=== PATIENT | female | born 1990 | race Caucasian/White ===

== ENCOUNTER 2016-09-28 21:34 | Emergency (ER) | payer SELFPAY ==
--- NOTE | 2016-09-28 22:00 | ED.PDOC ---
History of Present Illness - General Chief Complaint: Respiratory Problem Stated Complaint: cough, sore throat,fever Time Seen by Provider: 09/28/16 22:00 Source: patient - History of Present Illness Initial Comments: Sanna Becerra 26 y/o female with history of asthma stated she started experiencing dry non productive cough last with nasal congestion and sore throat tonight.No chest pains no sob .Stated daughter sick with same seen here last night Timing/Duration: yesterday Severity: moderate Possible Cause: occasional episodes Improving Factors: nothing Worsening Factors: nothing Associated Symptoms: nasal congestion Respiratory Risk Factors: exposure to allergen Allergies/Adverse Reactions: Allergies Butorphanol [From Stadol] Adverse Reaction (Severe, Verified 12/31/14 12:26) Home Medications: Ambulatory Orders Acetaminophen W/ Codeine [Tylenol W/ CODEINE #3] 1 ea PO Q4-6H PRN #14 Cetirizine HCl [Zyrtec Allergy] 10 mg PO DAILY 12/31/14 Fluconazole [Diflucan] 200 mg PO AC #1 tab 12/31/14 Fluoxetine HCl [PROzac] 20 mg PO DAILY 12/31/14 LORazepam [Ativan] 1 mg PO BID 12/31/14 Sulfa/Trimeth 800/160 (Ds) Tab [Bactrim DS Tab] 1 ea PO BID #14 tab 12/31/14 Albuterol Inhaler [Ventolin Hfa Inhaler] 1 puff INH Q6HRS #1 inh 09/28/16 Chlorpheniramine Maleate [Chlor-Trimeton Allergy] 12 mg PO BEDTIME #30 tab 09/28 Dextromethorphan-Guaifenesin [Mucinex Dm 30-600 mg] 1 tab PO BID #30 tab predniSONE [Prednisone] 20 mg PO DAILY #7 tab 09/28/16 Review of Systems - Review of Systems Constitutional: States: no symptoms reported EENTM: States: see HPI, nose congestion Respiratory: States: see HPI, cough Cardiology: States: no symptoms reported Gastrointestinal/Abdominal: States: no symptoms reported Genitourinary: States: no symptoms reported Musculoskeletal: States: no symptoms reported Skin: States: no symptoms reported Neurological: States: no symptoms reported Endocrine: States: no symptoms reported Hematologic/Lymphatic: States: no symptoms reported Past Medical History (General) - Patient Medical History Hx Seizures: No Hx Stroke: No Hx Dementia: No Hx Asthma: Yes Hx of COPD: No Hx Cardiac Disorders: No Hx Congestive Heart Failure: No Hx Pacemaker: No Hx Hypertension: No Hx Thyroid Disease: No Hx Diabetes: No Hx Gastroesophageal Reflux: No Hx Renal Disease: No Hx Cancer: No Hx of HIV: No Hx Hepatitis C: No Hx MRSA: No Surgical History: no surgical history - Vaccination History Hx Tetanus, Diphtheria Vaccination: Yes Hx Influenza Vaccination: No Hx Pneumococcal Vaccination: No - Social History Hx Tobacco Use: No Hx Chewing Tobacco Use: No Hx Alcohol Use: No Hx Substance Use: No Hx Substance Use Treatment: No Hx Depression: Yes Hx Physical Abuse: No Hx Emotional Abuse: No Hx Suspected Abuse: No - Activities of Daily Living Patient Lives Alone: No - family - Female History Patient is a Female of Child Bearing Age (10 -59 yrs old): Yes Hx Last Menstrual Period: 09/21/16 Patient : No Family Medical History - Family History Mother Family History: No Known Living Status: Still Living Hx Family Asthma: Yes - mom, daughter Physical Exam - Physical Exam General Appearance: Alert, No apparent distress Eye Exam: bilateral normal ENT Exam: normal ENT inspection, hearing grossly normal, TMs normal, pharynx normal, nasal congestion Neck: non-tender, full range of motion Respiratory: chest non-tender, no respiratory distress, wheezing - mild Cardiovascular/Chest: normal peripheral pulses, regular rate, rhythm, no edema, no gallop, no JVD, no murmur Gastrointestinal/Abdominal: normal bowel sounds, non tender, soft, no organomegaly Extremity: normal range of motion, non-tender, normal inspection, no pedal edema , no calf tenderness Neurologic: alert, normal mood/affect, oriented x 3 Skin Exam: normal color, warm/dry Progress - Results/Orders Results/Orders: 09/28/16 22:02 SVN/Updraft Therapy .ONCE 09/28/16 22:20 STREP A SCREEN CULTURE Stat 09/29/16 09:00 [facility] Daily Laboratory Results Group A Strep DNA Negative (NEGATIVE) 09/28/16 22:20 - EKG/XRAY/CT XRAY: chest - no acute abnormalities noted Departure - Departure Clinical Impression: Reactive airway disease with acute exacerbation, Acute bronchospasm, Sore throat Time of Disposition: 22:39 Disposition: Discharge to Home or Self Care Condition: Good Departure Forms: ED Discharge - Pt. Copy, Patient Portal Self Enrollment Referrals: Jesse Hendrix MD [Primary Care Provider] - 1-2 Weeks Prescriptions: Albuterol Inhaler [Ventolin Hfa Inhaler] 1 puff INH Q6HRS #1 inh Chlorpheniramine Maleate [Chlor-Trimeton Allergy] 12 mg PO BEDTIME #30 tab Dextromethorphan-Guaifenesin [Mucinex Dm 30-600 mg] 1 tab PO BID #30 tab predniSONE [Prednisone] 20 mg PO DAILY #7 tab Home Medications: Ambulatory Orders Acetaminophen W/ Codeine [Tylenol W/ CODEINE #3] 1 ea PO Q4-6H PRN #14 Cetirizine HCl [Zyrtec Allergy] 10 mg PO DAILY 12/31/14 Fluconazole [Diflucan] 200 mg PO AC #1 tab 12/31/14 Fluoxetine HCl [PROzac] 20 mg PO DAILY 12/31/14 LORazepam [Ativan] 1 mg PO BID 12/31/14 Sulfa/Trimeth 800/160 (Ds) Tab [Bactrim DS Tab] 1 ea PO BID #14 tab 12/31/14 Albuterol Inhaler [Ventolin Hfa Inhaler] 1 puff INH Q6HRS #1 inh 09/28/16 Chlorpheniramine Maleate [Chlor-Trimeton Allergy] 12 mg PO BEDTIME #30 tab 09/28 Dextromethorphan-Guaifenesin [Mucinex Dm 30-600 mg] 1 tab PO BID #30 tab predniSONE [Prednisone] 20 mg PO DAILY #7 tab 09/28/16 Additional Instructions: FOLLOW UP WITH PRIMARY MD 10/03/16 as needed
[2016-09-28] MEDS ORDERED: predniSONE 10 MG TAB PO ONE (22:01)
[2016-09-28] MEDS ORDERED: IPRATROPIUM/ALBUTEROL 3 ML VIAL NEB ONE (22:02)
--- NOTE | 2016-09-28 22:34 | RAD ---
EXAM DESCRIPTION: Chest,1 View CLINICAL HISTORY: cough COMPARISON: None FINDINGS: Cardiac silhouette is within normal limits. The left upper ribs were not completely included in the examination. The patient is rotated. There is no focal parenchymal or pleural disease. There is no acute osseous process visualized. IMPRESSION: No evidence of acute cardiopulmonary disease. Electronically signed by: Ariel Grimaldo MD 09/28/2016 10:33 PM CDT
[2016-09-28] MEDS ORDERED: BENZONATATE PERLES 100 MG CAP PO ONE (22:44)
[2016-09-28] MEDS ORDERED: diphenhydrAMINE HCL 25 MG CAP PO ONE (22:44)
[2016-09-28 23:21] VITALS: BP 119/76; TEMP 100; O2SAT 98
== END 2016-09-28 23:21 | disposition home or self-care (01) ==
LOC: ER 21:34
DX: J45.901 Unspecified asthma with (acute) exacerbation (principal); J02.9 Acute pharyngitis, unspecified; F32.9 Major depressive disorder, single episode, unspecified; Z79.899 Other long term (current) drug therapy; Z88.8 Allergy status to other drugs, medicaments and biological substances
CPT/HCPCS: 71010; 87070; 87651; 94640; J7512; J7620; Q0163

== ENCOUNTER 2017-02-02 11:32 | Emergency (ER) | payer SELFPAY ==
[2017-02-02 11:46] VITALS: BP 111/77; TEMP 97.4; O2SAT 96
[2017-02-02] MEDS ORDERED: KETOROLAC TROMETHAMINE INJ 30 MG/ML VIAL IM ONE (11:48)
--- NOTE | 2017-02-02 11:51 | ED.PDOC ---
History of Present Illness - General Chief Complaint: Head Injury Stated Complaint: hit in head with door Time Seen by Provider: 02/02/17 11:44 Source: patient Exam Limitations: no limitations - History of Present Illness Initial Comments: Patient presents with a bump on her forehead. She says that her was opening a door and it hit her in the head. She did not get knocked out nor did she get knocked down. Pain is mid-forehead with some radiation to the right. Aching in nature. No previous injuries to the area. Timing/Duration: 1-3 hours Severity: mild Improving Factors: nothing Worsening Factors: nothing Associated Symptoms: denies symptoms Allergies/Adverse Reactions: Allergies Butorphanol [From Stadol] Adverse Reaction (Severe, Verified 12/31/14 12:26) Home Medications: Ambulatory Orders Acetaminophen W/ Codeine [Tylenol W/ CODEINE #3] 1 ea PO Q4-6H PRN #14 Cetirizine HCl [Zyrtec Allergy] 10 mg PO DAILY 12/31/14 Fluconazole [Diflucan] 200 mg PO AC #1 tab 12/31/14 Fluoxetine HCl [PROzac] 20 mg PO DAILY 12/31/14 LORazepam [Ativan] 1 mg PO BID 12/31/14 Sulfa/Trimeth 800/160 (Ds) Tab [Bactrim DS Tab] 1 ea PO BID #14 tab 12/31/14 Albuterol Inhaler [Ventolin Hfa Inhaler] 1 puff INH Q6HRS #1 inh 09/28/16 Chlorpheniramine Maleate [Chlor-Trimeton Allergy] 12 mg PO BEDTIME #30 tab 09/28 Dextromethorphan-Guaifenesin [Mucinex Dm 30-600 mg] 1 tab PO BID #30 tab predniSONE 20 mg PO DAILY #7 tab 09/28/16 Review of Systems - Review of Systems Constitutional: States: no symptoms reported EENTM: States: no symptoms reported Respiratory: States: no symptoms reported Cardiology: States: no symptoms reported Gastrointestinal/Abdominal: States: no symptoms reported Genitourinary: States: no symptoms reported Musculoskeletal: States: see HPI Skin: States: no symptoms reported Neurological: States: no symptoms reported Endocrine: States: no symptoms reported Hematologic/Lymphatic: States: no symptoms reported Past Medical History (General) - Patient Medical History Hx Seizures: No Hx Stroke: No Hx Dementia: No Hx Asthma: Yes Hx of COPD: No Hx Cardiac Disorders: No Hx Congestive Heart Failure: No Hx Pacemaker: No Hx Hypertension: No Hx Thyroid Disease: No Hx Diabetes: No Hx Gastroesophageal Reflux: No Hx Renal Disease: No Hx Cancer: No Hx of HIV: No Hx Hepatitis C: No Hx MRSA: No Surgical History: no surgical history - Vaccination History Hx Tetanus, Diphtheria Vaccination: Yes - 5 years ago Hx Influenza Vaccination: No Hx Pneumococcal Vaccination: No - Social History Hx Tobacco Use: Yes Hx Chewing Tobacco Use: No Hx Alcohol Use: No Hx Substance Use: No Hx Substance Use Treatment: No Hx Depression: Yes Hx Physical Abuse: No Hx Emotional Abuse: No Hx Suspected Abuse: No - Female History Patient is a Female of Child Bearing Age (10 -59 yrs old): Yes Hx Last Menstrual Period: 09/21/16 Patient : No Family Medical History - Family History Mother Family History: No Known Living Status: Still Living Hx Family Asthma: Yes - mom, daughter Physical Exam - Physical Exam General Appearance: Alert Respiratory: lungs clear Cardiovascular/Chest: regular rate, rhythm Gastrointestinal/Abdominal: normal bowel sounds, non tender, soft 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 TTP. No abnormalities of the nose. Progress - Progress Progress: 02/02/17 11:53 Toradol 30 mg IM x one. Departure - Departure Clinical Impression: Contusion of forehead Disposition: Discharge to Home or Self Care Condition: Good Departure Forms: ED Discharge - Pt. Copy, Patient Portal Self Enrollment Diet: resume usual diet Activity: increase activity as tolerated Referrals: Jesse Hendrix MD [Primary Care Provider] - 1-2 Weeks Home Medications: Ambulatory Orders Acetaminophen W/ Codeine [Tylenol W/ CODEINE #3] 1 ea PO Q4-6H PRN #14 Cetirizine HCl [Zyrtec Allergy] 10 mg PO DAILY 12/31/14 Fluconazole [Diflucan] 200 mg PO AC #1 tab 12/31/14 Fluoxetine HCl [PROzac] 20 mg PO DAILY 12/31/14 LORazepam [Ativan] 1 mg PO BID 12/31/14 Sulfa/Trimeth 800/160 (Ds) Tab [Bactrim DS Tab] 1 ea PO BID #14 tab 12/31/14 Albuterol Inhaler [Ventolin Hfa Inhaler] 1 puff INH Q6HRS #1 inh 09/28/16 Chlorpheniramine Maleate [Chlor-Trimeton Allergy] 12 mg PO BEDTIME #30 tab 09/28 Dextromethorphan-Guaifenesin [Mucinex Dm 30-600 mg] 1 tab PO BID #30 tab predniSONE 20 mg PO DAILY #7 tab 09/28/16 Additional Instructions: Ice ice to the area as needed. Tylenol for further pain control. Return to E.R. for nausea and vomiting 2 or more times.
[2017-02-02] MEDS ORDERED: NEOMYCIN-BACITRACIN-POLYMYXIN 0.9 GM UD TOP ONE (12:19)
== END 2017-02-02 12:21 | disposition home or self-care (01) ==
LOC: ER 11:32
DX: S00.83XA Contusion of other part of head, initial encounter (principal); Z88.8 Allergy status to other drugs, medicaments and biological substances; Z79.899 Other long term (current) drug therapy; Z87.891 Personal history of nicotine dependence; W22.8XXA Striking against or struck by other objects, initial encounter; Y92.9 Unspecified place or not applicable

== ENCOUNTER 2017-02-07 21:47 | Emergency (ER) | payer SELFPAY ==
[2017-02-07 22:25] VITALS: TEMP 98.4
[2017-02-07] MEDS ORDERED: FLUoxetine HCL 20 MG CAP PO ONE (22:28)
--- NOTE | 2017-02-07 22:31 | ED.PDOC ---
History of Present Illness - General Chief Complaint: Behavioral / Psych Stated Complaint: head pain, depression Time Seen by Provider: 02/07/17 21:58 Source: patient, RN notes reviewed, Vital Signs reviewed Exam Limitations: no limitations - History of Present Illness Initial Comments: Patient mainly here due to lots of emotional stress and post- depression. Her fiance is here with a cardiac issue. She takes Prozac and Lorazepam for her depression and anxiety. These are managed by her [employer]. She dose not feel like they are working well for her anymore. Reports she has had diarrhea all day due to the stress. She was here with a forehead contusion 5 days ago. Concerned that even though the bump is gone the pain is still present. Timing/Duration: getting worse Severity: moderate Associated Symptoms: anxiety Allergies/Adverse Reactions: Allergies Butorphanol [From Stadol] Adverse Reaction (Severe, Verified 12/31/14 12:26) Home Medications: Ambulatory Orders Fluoxetine HCl [PROzac] 40 mg PO DAILY 12/31/14 LORazepam [Ativan] 2 mg PO DAILY 12/31/14 Albuterol Inhaler [Ventolin Hfa Inhaler] 1 puff INH Q6HRS PRN 02/02/17 Levothyroxine Sodium [Synthroid] 125 mcg PO DAILY 02/02/17 Fluoxetine HCl 20 mg PO DAILY #30 cap 02/07/17 Review of Systems - Review of Systems Constitutional: States: no symptoms reported Respiratory: States: no symptoms reported Cardiology: States: no symptoms reported Gastrointestinal/Abdominal: States: diarrhea Musculoskeletal: States: no symptoms reported Skin: States: other - forehead contusion Neurological: States: anxiety, depressed, emotional problems, headache - frontal All other Systems: No Change from Baseline Past Medical History (General) - Patient Medical History Hx Seizures: No Hx Stroke: No Hx Dementia: No Hx Asthma: Yes Hx of COPD: No Hx Cardiac Disorders: No Hx Congestive Heart Failure: No Hx Pacemaker: No Hx Hypertension: No Hx Thyroid Disease: Yes Hx Diabetes: No Hx Gastroesophageal Reflux: No Hx Renal Disease: No Hx Cancer: No Hx of HIV: No Hx Hepatitis C: No Hx MRSA: No Surgical History: no surgical history - Vaccination History Hx Tetanus, Diphtheria Vaccination: Yes - 5 years ago Hx Influenza Vaccination: No Hx Pneumococcal Vaccination: No Immunizations Up to Date: No - Social History Hx Tobacco Use: Yes Hx Chewing Tobacco Use: No Hx Alcohol Use: No Hx Substance Use: No Hx Substance Use Treatment: No Hx Depression: Yes Hx Physical Abuse: No Hx Emotional Abuse: No Hx Suspected Abuse: No - Female History Patient is a Female of Child Bearing Age (10 -59 yrs old): Yes Hx Last Menstrual Period: 09/21/16 Patient : No - on menses now Family Medical History - Family History Mother Family History: No Known Living Status: Still Living Hx Family Asthma: Yes - mom, daughter Physical Exam - Physical Exam General Appearance: Alert, Anxious, No apparent distress, Well Developed, Well Groomed, Well Hydrated, Well Nourished Neck: supple, normal inspection Respiratory: lungs clear, normal breath sounds, no respiratory distress, no accessory muscle use Cardiovascular/Chest: regular rate, rhythm, no gallop, no JVD, no murmur Extremities Exam: normal range of motion, no evidence of injury Neurological: alert, calm, 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 Will give Ativan 1mg IM and Prozac 20mg PO for a total Prozac dose of 60mg. 02/07/17 23:07 Patient is now requesting to be discharged since her fiance is being transferred to another hospital Departure - Departure Clinical Impression: Post- depression, Generalized anxiety disorder Contusion of forehead Qualifiers: Encounter type: subsequent encounter Qualified Code(s): S00.83XD - Contusion of other part of head, subsequent encounter Time of Disposition: 23:04 Disposition: Discharge to Home or Self Care Condition: Good Departure Forms: ED Discharge - Pt. Copy, Patient Portal Self Enrollment Instructions: Generalized Anxiety Disorder, DI for Depression Diet: resume usual diet Activity: increase activity as tolerated Referrals: KILEY FANG JR [Primary Care Provider] - 1-2 Weeks Prescriptions: Fluoxetine HCl 20 mg PO DAILY #30 cap Home Medications: Ambulatory Orders Fluoxetine HCl [PROzac] 40 mg PO DAILY 12/31/14 LORazepam [Ativan] 2 mg PO DAILY 12/31/14 Albuterol Inhaler [Ventolin Hfa Inhaler] 1 puff INH Q6HRS PRN 02/02/17 Levothyroxine Sodium [Synthroid] 125 mcg PO DAILY 02/02/17 Fluoxetine HCl 20 mg PO DAILY #30 cap 02/07/17 Additional Instructions: Increase Prozac to 60mg Daily Change Lorazepam to 1mg 3X/day Follow up with your doctor
[2017-02-07] MEDS ORDERED: IBUPROFEN 200 MG TAB PO ONE (22:49)
[2017-02-07 23:19] VITALS: BP 128/77; O2SAT 97
== END 2017-02-07 23:19 | disposition home or self-care (01) ==
LOC: ER 21:47
DX: F53 Mental and behavioral disorders associated with the puerperium, not elsewhere classified (principal); F41.9 Anxiety disorder, unspecified; S00.83XD Contusion of other part of head, subsequent encounter; E07.9 Disorder of thyroid, unspecified; Z88.8 Allergy status to other drugs, medicaments and biological substances; X58.XXXD Exposure to other specified factors, subsequent encounter; Z79.899 Other long term (current) drug therapy

== ENCOUNTER 2017-05-10 05:34 | Emergency (ER) | payer SELFPAY ==
[2017-05-10 05:47] VITALS: BP 118/83; TEMP 97.7; O2SAT 96
[2017-05-10] MEDS ORDERED: BENZONATATE PERLES 100 MG CAP PO ONE (06:23)
--- NOTE | 2017-05-10 06:26 | ED.PDOC ---
History of Present Illness - General Chief Complaint: Respiratory Problem Stated Complaint: sore throat, couhg and congestion Time Seen by Provider: 05/10/17 06:23 Source: patient Exam Limitations: no limitations - History of Present Illness Timing/Duration: week Cough Quality/Degree: other - cough Possible Cause: illness exposure Improving Factors: nothing Worsening Factors: nothing Associated Symptoms: cough, nasal drainage, sore throat Allergies/Adverse Reactions: Allergies Butorphanol [From Stadol] Adverse Reaction (Severe, Verified 12/31/14 12:26) Home Medications: Ambulatory Orders Fluoxetine HCl [PROzac] 40 mg PO DAILY 12/31/14 LORazepam [Ativan] 2 mg PO DAILY 12/31/14 Albuterol Inhaler [Ventolin Hfa Inhaler] 1 puff INH Q6HRS PRN 02/02/17 Levothyroxine Sodium [Synthroid] 125 mcg PO DAILY 02/02/17 Benzonatate 200 mg PO TID PRN #20 cap 05/10/17 Review of Systems - Review of Systems Constitutional: Denies: chills, fever EENTM: States: nose congestion, throat pain Respiratory: States: cough. Denies: short of breath, wheezing Cardiology: States: no symptoms reported Gastrointestinal/Abdominal: States: no symptoms reported Genitourinary: States: no symptoms reported Musculoskeletal: States: other - myalgias Skin: States: no symptoms reported Neurological: States: no symptoms reported Endocrine: States: no symptoms reported Hematologic/Lymphatic: States: no symptoms reported All other Systems: Reviewed and Negative Past Medical History (General) - Patient Medical History Hx Seizures: No Hx Stroke: No Hx Dementia: No Hx Asthma: Yes Hx of COPD: No Hx Cardiac Disorders: No Hx Congestive Heart Failure: No Hx Pacemaker: No Hx Hypertension: No Hx Thyroid Disease: Yes Hx Diabetes: No Hx Gastroesophageal Reflux: No Hx Renal Disease: No Hx Cancer: No Hx of HIV: No Hx Hepatitis C: No Hx MRSA: No Surgical History: no surgical history - Vaccination History Hx Tetanus, Diphtheria Vaccination: Yes - 5 years ago Hx Influenza Vaccination: No Hx Pneumococcal Vaccination: No - Social History Hx Tobacco Use: Yes Hx Chewing Tobacco Use: No Hx Alcohol Use: No Hx Substance Use: No Hx Substance Use Treatment: No Hx Depression: Yes Hx Physical Abuse: No Hx Emotional Abuse: No Hx Suspected Abuse: No - Female History Hx Last Menstrual Period: 09/21/16 Patient : No - on menses now Family Medical History - Family History Mother Family History: No Known Living Status: Still Living Hx Family Asthma: Yes - mom, daughter Physical Exam - Physical Exam General Appearance: Alert, Ill Appearing Eye Exam: bilateral normal ENT Exam: pharynx normal, nasal drainage Neck: non-tender, full range of motion, supple Respiratory: chest non-tender, lungs clear, normal breath sounds Cardiovascular/Chest: normal peripheral pulses, regular rate, rhythm, no edema, no gallop, no JVD Gastrointestinal/Abdominal: non tender, soft Extremity: normal range of motion, normal inspection Neurologic: alert, normal mood/affect Skin Exam: normal color, warm/dry Lymphatic: no adenopathy Progress - Results/Orders Results/Orders: RAPID FLU AND STREP NEG. VIRAL URI. Departure - Departure Clinical Impression: Cough Upper respiratory infection Qualifiers: URI type: acute nasopharyngitis (common cold) Qualified Code(s): J00 - Acute nasopharyngitis [common cold] Disposition: Discharge to Home or Self Care Condition: Good Departure Forms: ED Discharge - Pt. Copy, Patient Portal Self Enrollment Instructions: Common Cold Diet: resume usual diet Activity: increase activity as tolerated Prescriptions: Benzonatate 200 mg PO TID PRN #20 cap PRN Reason: Cough Home Medications: Ambulatory Orders Fluoxetine HCl [PROzac] 40 mg PO DAILY 12/31/14 LORazepam [Ativan] 2 mg PO DAILY 12/31/14 Albuterol Inhaler [Ventolin Hfa Inhaler] 1 puff INH Q6HRS PRN 02/02/17 Levothyroxine Sodium [Synthroid] 125 mcg PO DAILY 02/02/17 Benzonatate 200 mg PO TID PRN #20 cap 05/10/17
== END 2017-05-10 06:31 | disposition home or self-care (01) ==
LOC: ER 05:34
DX: J00 Acute nasopharyngitis [common cold] (principal); E07.9 Disorder of thyroid, unspecified; Z87.891 Personal history of nicotine dependence; Z79.899 Other long term (current) drug therapy

== ENCOUNTER 2017-06-29 17:36 | Emergency (ER) | payer SELFPAY ==
[2017-06-29] MEDS ORDERED: KETOROLAC TROMETHAMINE INJ 60 MG/2 ML VIAL IM ONE (18:03)
[2017-06-29] MEDS ORDERED: ACETAMINOPHEN 500 MG TAB PO ONE (18:04)
--- NOTE | 2017-06-29 18:07 | ED.PDOC ---
History of Present Illness - General Chief Complaint: Respiratory Problem Stated Complaint: COUGH Time Seen by Provider: 06/29/17 18:03 Source: patient - History of Present Illness Comments: PT PRESENTS TO THE ED WITH COMPLAINT OF COUGH, SORE THROAT, HEADACHE, BODYACHES , AND EAR PAIN X 2 DAYS. Cough Quality/Degree: blood streaked sputum Improving Factors: nothing Worsening Factors: nothing Associated Symptoms: cough, earache, headache, sore throat Allergies/Adverse Reactions: Allergies Butorphanol [From Stadol] Adverse Reaction (Severe, Verified 12/31/14 12:26) Home Medications: Ambulatory Orders Fluoxetine HCl [PROzac] 40 mg PO DAILY 12/31/14 LORazepam [Ativan] 2 mg PO DAILY 12/31/14 Albuterol Inhaler [Ventolin Hfa Inhaler] 1 puff INH Q6HRS PRN 02/02/17 Levothyroxine Sodium [Synthroid] 125 mcg PO DAILY 02/02/17 Benzonatate 200 mg PO TID PRN #20 cap 05/10/17 Azithromycin Tab [Zithromax] 250 mg PO QD #4 tab 06/29/17 Benzonatate Perles [Tessalon Perles] 200 mg PO TID PRN #30 cap 06/29/17 Ibuprofen 800 mg PO Q8HR PRN #30 tab 06/29/17 Review of Systems - Review of Systems Constitutional: States: malaise. Denies: chills, fever EENTM: States: ear pain, nose congestion, throat pain Respiratory: States: cough, short of breath Cardiology: Denies: chest pain, palpitations Gastrointestinal/Abdominal: Denies: nausea, vomiting Genitourinary: Denies: dysuria, frequency Musculoskeletal: States: muscle pain. Denies: joint pain, joint swelling Skin: Denies: dryness, lesions Neurological: States: headache. Denies: numbness Endocrine: States: no symptoms reported Hematologic/Lymphatic: States: no symptoms reported Past Medical History (General) - Patient Medical History Hx Seizures: No Hx Stroke: No Hx Dementia: No Hx Asthma: Yes Hx of COPD: No Hx Cardiac Disorders: No Hx Congestive Heart Failure: No Hx Pacemaker: No Hx Hypertension: No Hx Thyroid Disease: Yes Hx Diabetes: No Hx Gastroesophageal Reflux: No Hx Renal Disease: No Hx Cancer: No Hx of HIV: No Hx Hepatitis C: No Hx MRSA: No - Vaccination History Hx Tetanus, Diphtheria Vaccination: Yes - 5 years ago Hx Influenza Vaccination: No Hx Pneumococcal Vaccination: No - Social History Hx Tobacco Use: Yes Hx Chewing Tobacco Use: No Hx Alcohol Use: No Hx Substance Use: No Hx Substance Use Treatment: No Hx Depression: Yes Hx Physical Abuse: No Hx Emotional Abuse: No Hx Suspected Abuse: No - Female History Hx Last Menstrual Period: 09/21/16 Patient : No - on menses now Family Medical History - Family History Mother Family History: No Known Living Status: Still Living Hx Family Asthma: Yes - mom, daughter Physical Exam - Physical Exam General Appearance: Alert, Well Developed, Well Groomed, Well Hydrated, Well Nourished, Other - APPEARS UNCOMFORTABLE Eye Exam: bilateral normal ENT Exam: hearing grossly normal, TMs normal, pharyngeal erythema Neck: non-tender, normal inspection Respiratory: lungs clear, normal breath sounds, no respiratory distress, no accessory muscle use Cardiovascular/Chest: regular rate, rhythm, no murmur Gastrointestinal/Abdominal: non tender, soft Neurologic: alert, normal mood/affect, oriented x 3 Skin Exam: normal color, warm/dry Progress - EKG/XRAY/CT XRAY: chest - NO ACUTE FINDINGS Departure - Departure Clinical Impression: Acute bronchitis, Pharyngitis Time of Disposition: 18:52 Disposition: Discharge to Home or Self Care Condition: Good Departure Forms: ED Discharge - Pt. Copy, Patient Portal Self Enrollment Instructions: DI for Acute Bronchitis, DI for Pharyngitis/Tonsillopharyngitis - - Adult Referrals: [facility] [Provider Group] - 1-5 Days Prescriptions: Ibuprofen 800 mg PO Q8HR PRN #30 tab PRN Reason: Pain Azithromycin Tab [Zithromax] 250 mg PO QD #4 tab Benzonatate Perles [Tessalon Perles] 200 mg PO TID PRN #30 cap PRN Reason: Cough Home Medications: Ambulatory Orders Fluoxetine HCl [PROzac] 40 mg PO DAILY 12/31/14 LORazepam [Ativan] 2 mg PO DAILY 12/31/14 Albuterol Inhaler [Ventolin Hfa Inhaler] 1 puff INH Q6HRS PRN 02/02/17 Levothyroxine Sodium [Synthroid] 125 mcg PO DAILY 02/02/17 Benzonatate 200 mg PO TID PRN #20 cap 05/10/17 Azithromycin Tab [Zithromax] 250 mg PO QD #4 tab 06/29/17 Benzonatate Perles [Tessalon Perles] 200 mg PO TID PRN #30 cap 06/29/17 Ibuprofen 800 mg PO Q8HR PRN #30 tab 06/29/17
[2017-06-29 18:39] VITALS: TEMP 98.5
--- NOTE | 2017-06-29 18:50 | RAD ---
EXAM DESCRIPTION: Chest,1 View CLINICAL HISTORY: 27 years Female COUGH, SOB COMPARISON: 09/28/2016. FINDINGS: The patient is rotated slightly towards the left. The cardiomediastinal silhouette appears stable. No consolidating infiltrates or pleural effusions. No pneumothorax. IMPRESSION: No acute abnormality is identified. Electronically signed by: Ismael Daniels MD 06/29/2017 6:49 PM [employer]
[2017-06-29] MEDS ORDERED: AZITHROMYCIN 250 MG TAB PO ONE (18:51)
[2017-06-29 19:16] VITALS: BP 123/80; O2SAT 987
== END 2017-06-29 19:16 | disposition home or self-care (01) ==
LOC: ER 17:36
DX: J20.9 Acute bronchitis, unspecified (principal); J02.9 Acute pharyngitis, unspecified; F32.9 Major depressive disorder, single episode, unspecified; E07.9 Disorder of thyroid, unspecified
CPT/HCPCS: 71045; 87070; 87502; 87651; J1885; Q0144